=== PATIENT | male | born 1970 | race Two or more races ===

== ENCOUNTER 2017-06-05 12:35 | Emergency (ER) | payer BC ==
[2017-06-05 13:00] VITALS: TEMP 97.6
[2017-06-05] MEDS ORDERED: KETOROLAC 30 MG/ML 1 ML VIAL IVP STA (13:09)
[2017-06-05] MEDS ORDERED: SODIUM CHLORIDE 0.9% 1,000 ML IV STA (13:09)
[2017-06-05] MEDS ORDERED: ONDANSETRON 4 MG/2 ML VIAL IVP STA (13:09)
--- NOTE | 2017-06-05 13:27 | ED ---
General Adult HPI - General Chief complaint: Abdominal Pain Stated complaint: right side abdominal pain Time Seen by Provider: 06/05/17 12:50 Source: patient, EMS, RN notes reviewed Mode of arrival: EMS Limitations: no limitations - History of Present Illness Initial comments: This is a 47-year-old male who presents emergency Department complaining of sudden onset of right flank pain. Patient states he urinated a few times and that is when the pain started. Patient states he also is a little bit of pain in the right lower back. Patient denies any dysuria hematuria urinary frequency. Patient states he's never had pain like this before. It was pretty severe and it made him very nauseated. Patient denies any fever chills. Patient denies any diarrhea. Patient denies any chest pain difficult breathing shortness of breath. - Related Data Home Medications Medication Instructions Recorded Confirmed Naproxen Sodium [Aleve] 440 mg PO DAILY PRN 06/05/17 06/05/17 Previous Rx's Medication Instructions Recorded Hydrocodone/Acetaminophen [[place] 1 each PO Q4HR PRN #20 tab 06/05/17 5-325] Ketorolac [Toradol] 10 mg PO Q6HR #15 tab 06/05/17 Tamsulosin [Flomax] 0.4 mg PO DAILY #10 cap 06/05/17 Allergies Allergy/AdvReac Type Severity Reaction Status Date / Time No Known Allergies Allergy Unverified 06/05/17 12:39 Review of Systems ROS Statement: Those systems with pertinent positive or pertinent negative responses have been documented in the HPI. ROS Other: All systems not noted in ROS Statement are negative. Past Medical History Past Medical History: No Reported History History of Any Multi-Drug Resistant Organisms: None Reported Past Surgical History: No Surgical Hx Reported Past Psychological History: No Psychological Hx Reported Smoking Status: Current every day smoker Past Alcohol Use History: None Reported Past Drug Use History: None Reported General Exam - General Exam Comments Initial Comments: GENERAL: Patient is well-developed and well-nourished. Patient is nontoxic and well- hydrated and is in moderate distress. ENT: Neck is soft and supple. No significant lymphadenopathy is noted. Oropharynx is clear. Moist mucous membranes. Neck has full range of motion without eliciting any pain. EYES: The sclera were anicteric and conjunctiva were pink and moist. Extraocular movements were intact and pupils were equal round and reactive to light. Eyelids were unremarkable. PULMONARY: Unlabored respirations. Good breath sounds bilaterally. No audible rales rhonchi or wheezing was noted. CARDIOVASCULAR: There is a regular rate and rhythm without any murmurs gallops or rubs. ABDOMEN: Soft and nontender with normal bowel sounds. No palpable organomegaly was noted. There is no palpable pulsatile mass. SKIN: Skin is clear with no lesions or rashes and otherwise unremarkable. NEUROLOGIC: Patient is alert and oriented x3. Cranial nerves II through XII are grossly intact. Motor and sensory are also intact. Normal speech, volume and content. Symmetrical smile. MUSCULOSKELETAL: Normal extremities with adequate strength and full range of motion. No lower extremity swelling or edema. No calf tenderness. LYMPHATICS: No significant lymphadenopathy is noted PSYCHIATRIC: Normal psychiatric evaluation. Normal interpersonal interactions appears functionally intact in deals appropriately with others. No signs of depression. No signs of anxiety. Limitations: no limitations Course Vital Signs 06/05/17 06/05/17 12:53 14:30 Temperature 97.6 F Pulse Rate 95 82 Respiratory 18 16 Rate Blood Pressure 147/95 158/94 O2 Sat by Pulse 98 98 Oximetry Medical Decision Making - Medical Decision Making Computed tomography scan shows a 5.2 mm stone at the ureteral vesicular junction. - Lab Data Result diagrams: 06/05/17 13:57 06/05/17 13:10 Lab Results 06/05/17 06/05/17 Range/Units 13:10 13:57 WBC 7.9 (3.8-10.6) k/uL RBC 5.07 (4.30-5.90) m/uL Hgb 15.5 (13.0-17.5) gm/dL Hct 44.7 (39.0-53.0) % MCV 88.1 (80.0-100.0) fL MCH 30.7 (25.0-35.0) pg MCHC 34.8 (31.0-37.0) g/dL RDW 13.0 (11.5-15.5) % Plt Count 187 (150-450) k/uL Neutrophils % 83 % Lymphocytes % 12 % Monocytes % 3 % Eosinophils % 1 % Basophils % 0 % Neutrophils # 6.6 (1.3-7.7) k/uL Lymphocytes # 0.9 L (1.0-4.8) k/uL Monocytes # 0.3 (0-1.0) k/uL Eosinophils # 0.1 (0-0.7) k/uL Basophils # 0.0 (0-0.2) k/uL Sodium 139 (137-145) mmol/L Potassium 5.1 (3.5-5.1) mmol/L Chloride 106 (98-107) mmol/L Carbon Dioxide 24 (22-30) mmol/L Anion Gap 9 mmol/L BUN 22 H (9-20) mg/dL Creatinine 1.00 (0.66-1.25) mg/dL Est GFR (CKD-EPI)AfAm >90 (>60 ml/min/1.73 sqM) Est GFR (CKD-EPI)NonAf 89 (>60 ml/min/1.73 sqM) Glucose 99 (74-99) mg/dL Calcium 9.3 (8.4-10.2) mg/dL Total Bilirubin 0.8 (0.2-1.3) mg/dL AST 31 (17-59) U/L ALT 22 (21-72) U/L Alkaline Phosphatase 113 (38-126) U/L Total Protein 7.0 (6.3-8.2) g/dL Albumin 4.2 (3.5-5.0) g/dL Amylase 68 (30-110) U/L Lipase 91 (23-300) U/L Disposition Clinical Impression: Kidney stone on right side Disposition: HOME SELF-CARE Condition: Good Instructions: Kidney Stones (ED) Prescriptions: Hydrocodone/Acetaminophen [[place] 5-325] 1 each PO Q4HR PRN #20 tab PRN Reason: Pain Ketorolac [Toradol] 10 mg PO Q6HR #15 tab Tamsulosin [Flomax] 0.4 mg PO DAILY #10 cap Referrals: None,Stated [Primary Care Provider] - 1-2 days Time of Disposition: 14:37
[2017-06-05 13:49] LABS: ALT 22 U/L (21-72); AST 31 U/L (17-59); Albumin 4.2 g/dL (3.5-5.0); Alkaline Phosphatase 113 U/L (38-126); Amylase 68 U/L (30-110); Anion Gap 9 mmol/L; Blood Urea Nitrogen 22 mg/dL (9-20); Calcium 9.3 mg/dL (8.4-10.2); Carbon Dioxide 24 mmol/L (22-30); Chloride 106 mmol/L (98-107); Glucose 99 mg/dL (74-99); Lipase 91 U/L (23-300); Sodium 139 mmol/L (137-145); Total Bilirubin 0.8 mg/dL (0.2-1.3)
[2017-06-05 13:53] LABS: Potassium 5.1 mmol/L (3.5-5.1)
--- NOTE | 2017-06-05 14:03 | XR ---
EXAMINATION TYPE: XR KUB DATE OF EXAM: 06/05/2017 COMPARISON: NONE INDICATION: Abdomen pain right flank TECHNIQUE: Single view abdomen upright view FINDINGS: Nonspecific bowel gas within small bowel loops within the right mid abdomen. Some colonic bowel gas m ay be present. Suspicious air-fluid levels or differential fluid level are not present. No free air i s present. Psoas margins are normal. No organomegaly is present. No mass effect is evident. IMPRESSION: 1. Nonspecific abdomen.
[2017-06-05 14:07] LABS: Basophils % (A) 0 %; Eosinophils # (A) 0.1 k/uL (0-0.7); Eosinophils % (A) 1 %; HCT 44.7 % (39.0-53.0); HGB 15.5 gm/dL (13.0-17.5); Lymphocytes # (A) 0.9 k/uL (1.0-4.8); Lymphocytes % (A) 12 %; MCH 30.7 pg (25.0-35.0); MCHC 34.8 g/dL (31.0-37.0); MCV 88.1 fL (80.0-100.0); Mean Platelet Volume 7.6; Monocytes # (A) 0.3 k/uL (0-1.0); Monocytes % (A) 3 %; Neutrophils # (A) 6.6 k/uL (1.3-7.7); Neutrophils % (A) 83 %; Platelet Count 187 k/uL (150-450); RBC 5.07 m/uL (4.30-5.90); WBC 7.9 k/uL (3.8-10.6)
[2017-06-05] MEDS: MORPHINE SULFATE 4 MG/ML SYRINGE IVP STA ×2 (14:28→14:29)
--- NOTE | 2017-06-05 14:28 | CT ---
EXAMINATION TYPE: CT abdomen pelvis wo con DATE OF EXAM: 06/05/2017 COMPARISON: NONE HISTORY: 47-year-old male Right flank pain and right upper quadrant pain CT DLP: 388.1 mGycm. Automated exposure control for dose reduction was used. TECHNIQUE: Contiguous axial scanning of the abdomen and pelvis without IV contrast. Coronal and sagit yanelis reconstructions performed. FINDINGS: Heart is normal size without pericardial effusion. Lung bases clear with mild dependent atelectasis. Noncontrast images of the liver show tiny subcentimeter hypodensity in the peripheral right lobe and a punctate calcification in the left lobe. Noncontrast appearance of the gallbladder, adrenal glands, left kidney, spleen, and pancreas grossly unremarkable. There is mild perinephric stranding on the right and mild pelvocaliectasis a 5 mm calculus is present either at the right ureteral orifice her has just passed into the bladder, axial image 122. No dilated small bowel, free fluid, or free air. No mesenteric or retroperitoneal lymphadenopathy. Normal appendix. No significant stool burden or pericolonic inflammatory change.. Tiny nonspecific mesenteric calcification above the bladder likely sequela of previous inflammation. No abnormal fluid collection in the pelvis or pelvic lymphadenopathy. Bones: No osseous destructive process. IMPRESSION: A 5 mm calculus either at the right ureteral orifice or just having passed into the bladder. Minimal right-sided obstructive uropathy.
[2017-06-05 14:31] VITALS: BP 158/94; PULSE 82; RESP 16
[2017-06-05 14:46] LABS: Appearance,Urine Clear (Clear); Bilirubin,Urine Negative (Negative); Blood,Urine Moderate (Negative); Color,Urine Yellow; Glucose,Urine (UA) Negative (Negative); Ketones,Urine Negative (Negative); Leukocyte Esterase,Urine Negative (Negative); Mucus,Urine Occasional /hpf; PH, Urine 5.5 (5.0-8.0); Protein,Urine Trace (Negative); RBC,Urine 21 /hpf (0-5); Specific Gravity,Urine 1.023 (1.001-1.035); Squamous Epithelial Cell,Urine <1 /hpf (0-4); Urobilinogen,Urine <2.0 mg/dL (<2.0); WBC,Urine 3 /hpf (0-5)
== END 2017-06-05 15:00 | disposition home or self-care (01) ==
LOC: EC 12:35
DX: N20.0 Calculus of kidney (principal); F17.200 Nicotine dependence, unspecified, uncomplicated; Z53.29 Procedure and treatment not carried out because of patient's decision for other reasons
CPT/HCPCS: 36415; 80053; 82150; 83690; 85025; 81001; 74018; 74176; 99285; 96374; 96375; 96361; J2405; J1885

== ENCOUNTER → 2023-12-26 | Outpatient (CLI) | payer BC ==
--- NOTE | 2023-12-26 10:28 | CTL ---
EXAMINATION TYPE: CT Low Dose Lung DATE OF EXAM ORDERED: 12/26/2023 HISTORY: Lung cancer screening CT DLP: 92.[address] CTDI: 2.4 mGy Automated exposure control for dose reduction was used. Comparison: None TECHNIQUE: Low dose computed tomography scan was performed through the chest at 1 mm thick sections a nd reconstructed images in multiple planes at 1 mm and [address] DIAGNOSTIC QUALITY: Satisfactory FINDINGS: There is no suspicious lung mass or nodule The lungs are clear and there is no abnormal airspace consolidation or interstitial density. There is no mediastinal, hilar or axillary adenopathy. There is no pleural effusion, pleural thickening or pneumothorax. No focal osseous lesions are seen. Limited scans the upper abdomen reveals no gross abnormality IMPRESSION: 1. Lung rads Category 1 negative. Continue routine screening at yearly intervals. 2. No acute cardiopulmonary disease. [facility], , 12/26/2023 10:26 AM
== END | disposition home or self-care (01) ==
LOC: RADCTMAIN 09:33
PROVIDERS: ATTEND Internal Medicine
DX: Z12.2 Encounter for screening for malignant neoplasm of respiratory organs
CPT/HCPCS: 71271